=== PATIENT | male | born 1960 | race Caucasian/White ===

== ENCOUNTER 2017-12-24 16:46 | Inpatient (IN) | payer OTHER ==
[~2017-12-24] VITALS: Ht 170.2 cm; Wt 100.3 kg
[2017-12-24 16:56] VITALS: Ht 170.2 cm; Wt 100.3 kg
[2017-12-24 17:57] LABS: PLATELET COUNT 183 x10^3mcL (130-400); RED CELL DISTRIBUTION WIDTH 13.1 % (11.5-14.5)
[2017-12-24 18:04] LABS: CALCIUM 9.8 mg/dL (8.5-10.1); CARBON DIOXIDE 30.7 mmol/L (21-32); CHLORIDE SERUM 103 mmol/L (98-107); CREATININE SERUM 1.1 mg/dL (0.7-1.3); GFR1 > 60 mL/min; GLUCOSE SERUM 117 mg/dL (74-106); SODIUM SERUM 143 mmol/L (136-145)
[2017-12-24 18:09] LABS: ALBUMIN 4.2 g/dL (3.4-5.0); ALKALINE PHOSPHATASE 91 U/L (46-116); ALT/SGPT 43 U/L (16-63); AST/SGOT 23 U/L (15-37); BILIRUBIN TOTAL 0.79 mg/dL (0.20-1.00); LIPASE 72 IU/L (73-393); TOTAL PROTEIN, SERUM 7.9 g/dL (6.4-8.2)
[2017-12-24 18:28] LABS: BASOPHIL % 0 % (0-2)
[2017-12-24 21:17] LABS: T3 TOTAL 1.12 ng/mL
[2017-12-24 21:25] VITALS: BP 138/86
[2017-12-24 21:37] LABS: FREE T4 1.06 ng/dL (0.76-1.46); FREE THYROXINE INDEX 3.2 ug/dL (1.4-4.5); T4(THYROXINE) 8.9 ug/dL (4.7-13.3)
[2017-12-24 21:51] LABS: MAGNESIUM 2.4 mg/dL (1.8-2.4); PHOSPHOROUS 4.1 mg/dL (2.5-4.9)
[2017-12-24 23:28] LABS: microscopic required? NO
[2017-12-24 23:53] LABS: urine erythrocyte NEGATIVE (NEGATIVE)
[2017-12-25 00:05] LABS: AMPHETAMINE QUAL UR NONE DETECTED (NEG <=1000)
[2017-12-25 05:44] VITALS: BP 125/80
[2017-12-25 06:36] LABS: BASOPHIL % 0.2 % (0-2); PLATELET COUNT 159 x10^3mcL (130-400); RED CELL DISTRIBUTION WIDTH 13.5 % (11.5-14.5)
[2017-12-25 06:53] LABS: CALCIUM 7.7 mg/dL (8.5-10.1); CARBON DIOXIDE 25.9 mmol/L (21-32); CHLORIDE SERUM 111 mmol/L (98-107); CREATININE SERUM 0.8 mg/dL (0.7-1.3); GFR1 > 60 mL/min; GLUCOSE SERUM 99 mg/dL (74-106); POTASSIUM SERUM 3.7 mmol/L (3.5-5.1); SODIUM SERUM 144 mmol/L (136-145)
[2017-12-25 09:26] VITALS: BP 119/79
[2017-12-25 12:06] VITALS: BP 125/79
[2017-12-25 17:25] VITALS: BP 121/81
[2017-12-25 22:15] VITALS: BP 125/70
[2017-12-26 05:54] VITALS: BP 140/84
[2017-12-26 06:09] LABS: BASOPHIL % 0.3 % (0-2); PLATELET COUNT 146 x10^3mcL (130-400); RED CELL DISTRIBUTION WIDTH 13.3 % (11.5-14.5)
[2017-12-26 07:04] LABS: CALCIUM 8.2 mg/dL (8.5-10.1); CARBON DIOXIDE 24.3 mmol/L (21-32); CHLORIDE SERUM 109 mmol/L (98-107); CREATININE SERUM 0.9 mg/dL (0.7-1.3); GFR1 > 60 mL/min; GLUCOSE SERUM 82 mg/dL (74-106); MAGNESIUM 2.3 mg/dL (1.8-2.4); PHOSPHOROUS 2.8 mg/dL (2.5-4.9); POTASSIUM SERUM 3.4 mmol/L (3.5-5.1); SODIUM SERUM 142 mmol/L (136-145)
[2017-12-26 09:02] VITALS: BP 123/78
[2017-12-26 16:05] VITALS: BP 123/78
[2017-12-26 16:13] VITALS: BP 115/73
== END 2017-12-26 17:00 | disposition home or self-care (01) | DRG 388 ==
LOC: ED 16:46 → DU 20:12 → MU 20:12 → DU 21:03 → MU 12-25 14:24
PROVIDERS: Emergency Medicine; Family Medicine
DX: K56.690 Other partial intestinal obstruction (principal); N17.0 Acute kidney failure with tubular necrosis; E78.1 Pure hyperglyceridemia; E87.8 Other disorders of electrolyte and fluid balance, not elsewhere classified; E87.6 Hypokalemia; Z90.49 Acquired absence of other specified parts of digestive tract
CPT/HCPCS: 83880; 84439; J1885; J2270; J2405; J7030; Q0092; Q9967